=== PATIENT | male | born 1945 | race Caucasian/White ===

== ENCOUNTER 2016-05-02 07:54 | Emergency (ER) | payer MEDICARE ==
[~2016-05-02] VITALS: Ht 180.3 cm; Wt 88.6 kg
[2016-05-02 08:00] VITALS: BP 145/88; PULSE 55; RESP 16; TEMP 97.7; O2SAT 97
[2016-05-02] MEDS ORDERED: MORPHINE SULFATE 4 MG/ML INJ IV PUSH ONE (08:15)
[2016-05-02] MEDS ORDERED: LISI10TA PO (08:17)
[2016-05-02] MEDS ORDERED: ATOR20TA15 PO (08:17)
[2016-05-02] MEDS ORDERED: OMEP20TA PO (08:17)
[2016-05-02] MEDS ORDERED: TRAZ50TA12 PO (08:17)
[2016-05-02 08:40] LABS: AUTOMATED NEUTROPHIL # 6.4 TH/MM3 (1.8-7.7); BASOPHIL # 0.2 TH/MM3 (0-0.2); BASOPHIL % 2.6 % (0.0-2.0); EOSINOPHIL # 0.1 TH/MM3 (0-0.4); EOSINOPHIL % 1.4 % (0.0-4.0); LYMPH % 11.7 % (9.0-44.0); MEAN CELL VOLUME 92.6 FL (80.0-100.0); MEAN CORPUSCULAR HEMOGLOBIN 31.7 PG (27.0-34.0); MEAN CORPUSCULAR HGB CONC 34.2 % (32.0-36.0); MONO % 7.1 % (0.0-8.0); NEUT % 77.2 % (16.0-70.0); PLATELET COUNT 215 TH/MM3 (150-450); RED CELL DISTRIBUTION WIDTH 13.6 % (11.6-17.2); WHITE BLOOD COUNT 8.3 TH/MM3 (4.0-11.0)
[2016-05-02 08:43] LABS: HEMO FLAGS DIFF FINAL
[2016-05-02 08:50] LABS: CHLORIDE 108 MEQ/L (98-107); POTASSIUM 4.2 MEQ/L (3.5-5.1); SODIUM (NA) 144 MEQ/L (136-145)
[2016-05-02 08:54] LABS: ANION GAP 6 MEQ/L (5-15); BICARBONATE 29.7 MEQ/L (21.0-32.0); BLOOD UREA NITROGEN 13 MG/DL (7-18)
[2016-05-02 08:55] LABS: PROTHROMBIN TIME - PATIENT 11.4 SEC (9.8-11.6)
[2016-05-02 08:57] LABS: ALT (GPT) 18 U/L (12-78); AST (GOT) 20 U/L (15-37); GLOMERULAR FILTRATION RATE 74 ML/MIN (>89)
[2016-05-02 08:59] LABS: TOTAL BILIRUBIN ADULT 0.6 MG/DL (0.2-1.0)
[2016-05-02 09:00] LABS: ALKALINE PHOSPHATASE 85 U/L (45-117)
--- NOTE | 2016-05-02 09:08 | RADHPO ---
EXAM DATE/TIME: 05/02/2016 08:24 [facility] COMPARISON: No previous studies available for comparison. INDICATIONS: Left posterior shoulder pain and swelling, fall 1 month ago pain getting worse. MEDICAL HISTORY: None. SURGICAL HISTORY: None. ENCOUNTER: Initial ACUITY: 2 days PAIN SCORE: 9/10 LOCATION: Left posterior shoulder FINDINGS: There are degenerative changes at the acromioclavicular joint. Alignment is anatomic. Fracture is n ot appreciated. Lung apex is clear. CONCLUSION: Degenerative changes as described above without fracture. Some acromial spurring. Renard Avendaño MD FACR on May 02, 2016 at 8:59 Board Certified Radiologist. This report was verified electronically.
[2016-05-02] MEDS ORDERED: IOHEXOL 350 MG/ML 10 ML VIAL (for RAD DIAG) IV ONE (09:32)
--- NOTE | 2016-05-02 09:52 | RADHPO ---
EXAM DATE/TIME: 05/02/2016 09:23 [facility] COMPARISON: No previous studies available for comparison. INDICATIONS : Left posterior chest pain and swelling. IV CONTRAST: 75 cc Omnipaque 350 (iohexol) IV RADIATION DOSE: 11.04 CTDIvol (mGy) MEDICAL HISTORY : Hypertension. Carcinoma, prostate. SURGICAL HISTORY : Prostatectomy. ENCOUNTER: Initial ACUITY: 1 month PAIN SCALE: 2/10 LOCATION: Left chest TECHNIQUE: Volumetric scanning of the chest was performed. Using automated exposure control and adjustment of t he mA and/or kV according to patient size, radiation dose was kept as low as reasonably achievable to obtain optimal diagnostic quality images. FINDINGS: LUNGS: Mild scarring in both apices. A few calcified granulomas are noted bilaterally characteristic of prev ious granulomatous disease. Mild atelectasis versus scarring in both lung bases. Otherwise, the lungs are clear and well-aerated. No focal or acute infiltrates are seen. No suspicious pulmonary nodules. PLEURA: There is no pleural thickening or pleural effusion. MEDIASTINUM: The heart and great vessels demonstrate no acute abnormality. There is no mediastinal or hilar lymph adenopathy. AXILLAE: Within normal limits. No lymphadenopathy. SKELETAL: Within normal limits for patient age. Along the lateral left chest wall there is some intermediate mi xed density involving the muscle structures along the lateral left chest wall suggestive of hemorrhag e. No loculated fluid collections are seen. No definite soft tissue mass is demonstrated. The adjacen t ribs are grossly intact and unremarkable. MISCELLANEOUS: The visualized upper abdominal organs demonstrate no acute abnormality. CONCLUSION: 1. Nonspecific soft tissue swelling and mixed density within the left lateral muscle structures along the external chest wall suggestive of nonspecific hemorrhage. This can be seen with anticoagulant th erapy versus recent trauma. If this doesn't correlate with patient's medical or clinical history, a C T-guided biopsy could be performed on a nonemergent outpatient basis. 2. Otherwise, no focal or acute intrathoracic disease is demonstrated. Johnny Daugherty MD on May 02, 2016 at 9:40 Board Certified Radiologist. This report was verified electronically.
[2016-05-02] MEDS ORDERED: HYDR-3533 PO (10:26)
--- NOTE | 2016-05-02 10:26 | PD ---
HPI Chief Complaint: Musculoskeletal Complaint Time Seen by Provider: 08:06 Travel History International Travel<30 days: No Contact w/Intl Traveler<30days: No Traveled to known affect area: No History of Present Illness HPI Patient is a 71-year-old male who comes in complaining of left shoulder pain and swelling since yesterday. He has had multiple issues with this shoulder in the past with multiple injuries. However he noticed that started to become very swollen and very painful this morning. He denies any direct trauma to the shoulder. However he does report helping a friend her parents roof Monday and washing his car on Monday. He denies any chest pain or shortness of breath. He does have bruising to his left flank, which she says is from moving a couch 3 weeks ago. He says this is improving. He denies fever or chills. He denies any urinary symptoms. PFSH Past Medical History Cancer: Yes (Prostate) Cardiovascular Problems: Yes (HTN, ^ cholesterol ) Radiation Therapy: Yes Tetanus Vaccination: Unknown Influenza Vaccination: Yes Past Surgical History Other Surgery: Yes (Hernia, prostatectomy ) Social History Alcohol Use: Yes (Few times a week) Tobacco Use: No Substance Use: No Allergies-Medications (Allergen,Severity, Reaction): Coded Allergies: No Known Allergies (Unverified , 05/02/16) Reported Meds & Prescriptions Reported Meds & Active Scripts Active Reported Omeprazole 20 Mg Tab 20 Mg PO DAILY PRN Trazodone (Trazodone HCl) 50 Mg Tab 50 Mg PO HS Lisinopril-Hctz 10-12.5 Mg Tab 1 Tab PO DAILY Atorvastatin (Atorvastatin Calcium) 20 Mg Tab 20 Mg PO HS Review of Systems Except as stated in HPI: all other systems reviewed are Neg General / Constitutional: No: Fever, Chills HENT: No: Headaches, Lightheadedness Cardiovascular: No: Chest Pain or Discomfort Respiratory: No: Shortness of Breath Gastrointestinal: No: Nausea, Vomiting Genitourinary: No: Dysuria, Flank Pain Musculoskeletal: Positive: Arthralgias, Edema Skin: No Rash Neurologic: No: Weakness, Dizziness Physical Exam Narrative GENERAL: Awake and alert in no acute distress. SKIN: Warm and dry. Ecchymosis along the left flank, appears to be healing. HEAD: Atraumatic. Normocephalic. EYES: Pupils equal and round. No scleral icterus. ENT: Mucous membranes pink and moist. NECK: Trachea midline. No JVD. CARDIOVASCULAR: Regular rate and rhythm. No murmur appreciated. RESPIRATORY: No accessory muscle use. Clear to auscultation. Breath sounds equal bilaterally. GASTROINTESTINAL: Abdomen soft, non-tender, nondistended. No CVA tenderness. MUSCULOSKELETAL: No obvious deformities. No clubbing. No cyanosis. Large swelling around the left scapula. Patient has full range of motion of the left shoulder. Radial pulse intact. Tender to palpation along the bottom of the left scapula. NEUROLOGICAL: Awake and alert. No obvious cranial nerve deficits. Motor grossly within normal limits. Normal speech. PSYCHIATRIC: Appropriate mood and affect; insight and judgment normal. Data Data Last Documented VS Vital Signs Date Time Temp Pulse Resp B/P Pulse Ox O2 Delivery O2 Flow Rate FiO2 05/02/16 08:45 14 05/02/16 08:00 97.7 55 145/88 97 Orders Complete Blood Count With Diff (05/02/16 08:06) Comprehensive Metabolic Panel (05/02/16 08:06) Urinalysis - C+S If Indicated (05/02/16 08:06) Act Partial Throm Time (Ptt) (05/02/16 08:06) Prothrombin Time / Inr (Pt) (05/02/16 08:06) Ct Thorax/ Chest W Iv Contrast (05/02/16 ) Shoulder, Complete (>2vws) (05/02/16 ) Morphine Inj (Morphine Inj) (05/02/16 08:15) Iohexol 350 Inj (Omnipaque 350 Inj) (05/02/16 09:32) Splint Or Brace Apply/Monitor (05/02/16 10:16) Labs Laboratory Tests Test 05/02/16 08:30 White Blood Count 8.3 TH/MM3 Red Blood Count 4.00 MIL/MM3 Hemoglobin 12.7 GM/DL Hematocrit 37.0 % Mean Corpuscular Volume 92.6 FL Mean Corpuscular Hemoglobin 31.7 PG Mean Corpuscular Hemoglobin 34.2 % Concent Red Cell Distribution Width 13.6 % Platelet Count 215 TH/MM3 Mean Platelet Volume 7.3 FL Neutrophils (%) (Auto) 77.2 % Lymphocytes (%) (Auto) 11.7 % Monocytes (%) (Auto) 7.1 % Eosinophils (%) (Auto) 1.4 % Basophils (%) (Auto) 2.6 % Neutrophils # (Auto) 6.4 TH/MM3 Lymphocytes # (Auto) 1.0 TH/MM3 Monocytes # (Auto) 0.6 TH/MM3 Eosinophils # (Auto) 0.1 TH/MM3 Basophils # (Auto) 0.2 TH/MM3 CBC Comment DIFF FINAL Differential Comment Prothrombin Time 11.4 SEC Prothromb Time International 1.0 RATIO Ratio Activated Partial 24.0 SEC Thromboplast Time Sodium Level 144 MEQ/L Potassium Level 4.2 MEQ/L Chloride Level 108 MEQ/L Carbon Dioxide Level 29.7 MEQ/L Anion Gap 6 MEQ/L Blood Urea Nitrogen 13 MG/DL Creatinine 1.00 MG/DL Estimat Glomerular Filtration 74 ML/MIN Rate Random Glucose 123 MG/DL Calcium Level 9.3 MG/DL Total Bilirubin 0.6 MG/DL Aspartate Amino Transf 20 U/L (AST/SGOT) Alanine Aminotransferase 18 U/L (ALT/SGPT) Alkaline Phosphatase 85 U/L Total Protein 6.6 GM/DL Albumin 3.6 GM/DL [facility] Medical Decision Making Medical Screen Exam Complete: Yes Emergency Medical Condition: Yes Differential Diagnosis Scapular fracture versus chest mass versus hematoma versus rotator cuff injury Narrative Course Patient is a 71-year-old male who comes in complaining of pain and swelling to his left shoulder. Exam shows large swelling around the left scapula. Patient has full range of motion of the left shoulder. IV established, labs sent. Coagulation factors are within normal limits. Labs show no acute abnormalities. X-ray of the shoulder performed shows no acute abnormalities. Last [address] 05/02/16 0000 Signed Impressions: Service Date/Time: Monday, May 02, 2016 09:23 - CONCLUSION: 1. Nonspecific soft tissue swelling and mixed density within the left lateral muscle structures along the external chest wall suggestive of nonspecific hemorrhage. This can be seen with anticoagulant therapy versus recent trauma. If this doesn't correlate with patient's medical or clinical history, a CT-guided biopsy could be performed on a nonemergent outpatient basis. 2. Otherwise, no focal or acute intrathoracic disease is demonstrated. Johnny Daugherty MD CT results probably can be explained by injury to shoulder. I believe patient has a chronic injury to his shoulder that was aggravated by excessive use this weekend. Patient advised to apply ice to his shoulder. Given a prescription for pain medicine. Given a sling to wear for comfort. Advised to rest and not do any strenuous activity with that arm for the next week. Advised to return immediately if the swelling seems to worsen. Swelling has not changed while he has been in the emergency department. Patient advised to follow-up with orthopedics. Advised follow-up with his primary doctor when he returns to [place]. Advised to return to the ED as needed for any worsening symptoms. Both he and his are comfortable with this plan at this time. Diagnosis Primary Impression: Shoulder injury Qualified Code: S49.92XA - Shoulder injury, left, initial encounter Referrals: Gurjit Vinson Jr., MD call for appointment Patient Instructions: General Instructions, Rotator Cuff Injury (ED), Shoulder Sprain (ED) Additional Instructions: Apply ice to the area of swelling. Take pain medication as needed. Follow up with orthopedics. Return to the ED as needed for any worsening symptoms or if the swelling seems to be getting worse. Scripts Hydrocodone-Acetaminophen (Lortab)5-325 Mg Tab1 Tab PO Q6H PRN (PAIN) #12 TAB Ref 0 Prov:Radha Cabrales MD 05/02/16 Disposition: 01 DISCHARGE HOME Condition: Stable Radha Cabrales MD May 02, 2016 10:26
[2016-05-02 10:45] VITALS: BP 119/72; PULSE 65; RESP 16; O2SAT 98
== END 2016-05-02 10:45 | disposition home or self-care (01) ==
LOC: PHED 07:54
DX: S49.92XA Unspecified injury of left shoulder and upper arm, initial encounter (principal); X50.9XXA Other and unspecified overexertion or strenuous movements or postures, initial encounter; I10 Essential (primary) hypertension
CPT/HCPCS: 71260; 73030; 80053; 85025; 85610; 85730; 96374; 99284; J2270; Q9967